=== PATIENT | female | born 1940 | race African-American/Black ===

== ENCOUNTER 2021-12-29 09:56 | Inpatient (IN) | payer OTHER, MEDICARE ==
[2021-12-29 10:36] LABS: #Basophils 0.1 thou/uL (0.0-0.2); #Eosinphils 0.1 thou/uL (0.0-0.7); #Lymphocytes 1.1 thou/uL (1.20-3.40); #Monocytes 0.4 thou/uL (0.11-0.59); #Neutrophils 3.4 thou/uL (1.40-6.50); %Basophils 2.3 % (0.0-1.0); %Eosinophils 1.5 % (0.0-10.0); %Lymphocytes 21.5 % (21.0-51.0); %Monocytes 8.1 % (0.0-10.0); %Neutrophils 66.7 % (42.0-75.0); Hemoglobin 12.6 g/dL (12.0-16.0); Mean Corpuscular HGB CONC 31.7 g/dL (32.0-36.0); Mean Corpuscular Hemoglobin 29.8 pg (27.0-31.0); Platelet Count 191 thou/uL (130-400); RBC Distribution Width 12.8 % (11.5-14.5); Red Blood Cell (RBC) Count 4.23 mill/uL (4.20-5.40); White Blood Cell (WBC) Count 5.1 thou/uL (4.8-10.8)
[2021-12-29 10:41] LABS: ALT (SGPT) 30 U/L (8-55); AST (SGOT) 45 U/L (5-34); Albumin 3.6 g/dL (3.4-4.8); Alkaline Phosphatase 114 U/L (40-110); Anion Gap 15 mmol/L (10-20); BUN (Urea Nitrogen) 21 mg/dL (9.8-20.1); Bilirubin, Total 0.4 mg/dL (0.2-1.2); Calc. Creatinine Clearance 0 mL/min (70-130); Calcium 8.8 mg/dL (7.8-10.44); Carbon Dioxide 26 mmol/L (23-31); Chloride 104 mmol/L (98-107); Estimated GFR 82; Globulin 2.7 g/dL (2.4-3.5); Glucose 82 mg/dL (83-110); Potassium 3.5 mmol/L (3.5-5.1); Protein, Total 6.3 g/dL (5.8-8.1); Sodium 141 mmol/L (136-145)
[2021-12-29 10:56] LABS: PTT 33.3 sec (22.9-36.1); Prothrombin Time 13.4 sec (12.0-14.7)
[2021-12-29] MEDS ORDERED: Morphine 4 MG/ML VIAL ONE (12:35)
[2021-12-29] MEDS ORDERED: Ondansetron ODT 4 MG TAB PO PRN (13:10)
[2021-12-29] MEDS ORDERED: Ondansetron PF 4 MG/2 ML Vial IVP PRN (13:10)
[2021-12-29] MEDS ORDERED: Dextrose 50% Abboject 50 ML SYRINGE SLOW IVP PRN (13:10)
[2021-12-29] MEDS ORDERED: Promethazine HCl 25 MG/ML VIAL IM PRN (13:10)
[2021-12-29] MEDS ORDERED: Dextrose 5% in Water 1,000 ML IV PRN (13:10)
[2021-12-29] MEDS ORDERED: hydrALAZINE 20 MG/ML VIAL SLOW IVP PRN (13:10)
[2021-12-29] MEDS ORDERED: Sodium Chloride 0.9% 1,000 ML IV SCH ×2 (13:15)
[2021-12-29] MEDS ORDERED: Iopamidol-370 76% 500 ML 1 ML ONE (13:35)
[2021-12-29] MEDS ORDERED: Ketorolac Tromethamine 30 MG/ML VIAL ONE (13:55)
[2021-12-29] MEDS: Acetaminophen 500 MG TAB PO SCH ×2 (15:25→21:01)
[2021-12-29 15:27] LABS: Magnesium 1.8 mg/dL (1.6-2.6); Phosphorus 3.1 mg/dL (2.3-4.7)
[2021-12-29 15:46] VITALS: BMI 18.6
[2021-12-29] MEDS: Famotidine 20 MG TAB PO SCH (21:01)
[2021-12-29] MEDS: hydrALAZINE 20 MG/ML VIAL SLOW IVP PRN (21:02)
[2021-12-29] MEDS ORDERED: Acetaminophen/Codeine 30-300mg Tablet PO PRN (21:03)
[2021-12-30] MEDS: Acetaminophen 325 MG TAB PO SCH ×4 (00:34→17:32)
[2021-12-30] MEDS: hydrALAZINE 20 MG/ML VIAL SLOW IVP PRN (02:08)
[2021-12-30 04:03] LABS: #Lymphocytes 0.9 thou/uL (1.20-3.40); #Monocytes 0.7 thou/uL (0.11-0.59); %Basophils 0.1 % (0.0-1.0); %Eosinophils 0.4 % (0.0-10.0); %Lymphocytes 10.8 % (21.0-51.0); %Monocytes 8.1 % (0.0-10.0); %Neutrophils 80.7 % (42.0-75.0); Hemoglobin 13.5 g/dL (12.0-16.0); Mean Corpuscular HGB CONC 31.7 g/dL (32.0-36.0); Mean Corpuscular Hemoglobin 30.3 pg (27.0-31.0); Mean Corpuscular Volume 95.5 fL (78.0-98.0); Mean Platelet Volume 11.3 fL (7.4-10.4); Platelet Count 166 thou/uL (130-400); RBC Distribution Width 13.1 % (11.5-14.5); Red Blood Cell (RBC) Count 4.45 mill/uL (4.20-5.40); White Blood Cell (WBC) Count 8.7 thou/uL (4.8-10.8)
[2021-12-30 08:07] LABS: Anion Gap 20 mmol/L (10-20); BUN (Urea Nitrogen) 17 mg/dL (9.8-20.1); Calc. Creatinine Clearance 49 mL/min (70-130); Carbon Dioxide 24 mmol/L (23-31); Chloride 100 mmol/L (98-107); Estimated GFR 77; Glucose 80 mg/dL (83-110); Phosphorus 3.8 mg/dL (2.3-4.7); Potassium 3.7 mmol/L (3.5-5.1); Sodium 140 mmol/L (136-145)
[2021-12-30] MEDS: Famotidine 20 MG TAB PO SCH (08:37)
[2021-12-30] MEDS ORDERED: Senokot S 8.6-50 MG TAB PO SCH (09:00)
[2021-12-30] MEDS ORDERED: Polyethylene Glycol 3350 17 GM Packet PO SCH (09:00)
[2021-12-30 11:44] VITALS: BP 145/65
[2021-12-30 15:56] VITALS: TEMP 98.2
== END 2021-12-30 18:32 | disposition home or self-care (01) | DRG 83 ==
LOC: ERS 09:56 → IMCU/EMU 13:14
PROVIDERS: ADMIT Nurse Practitioner Acute Care; ATTEND Surgery
PROC: 0RSNXZZ Reposition Right Wrist Joint, External Approach (ICD-10-PCS; principal; 2021-12-29)
DX: S06.6X9A Traumatic subarachnoid hemorrhage with loss of consciousness of unspecified duration, initial encounter (principal); S52.571A Other intraarticular fracture of lower end of right radius, initial encounter for closed fracture; Z20.822 Contact with and (suspected) exposure to COVID-19; S63.004A Unspecified dislocation of right wrist and hand, initial encounter; I10 Essential (primary) hypertension; G25.0 Essential tremor; V63.0XXA Driver of heavy transport vehicle injured in collision with car, pick-up truck or van in nontraffic accident, initial encounter; Z88.0 Allergy status to penicillin; Z88.2 Allergy status to sulfonamides
CPT/HCPCS: 25605; 36415; 70450; 71260; 72125; 74177; 80048; 80053; 83735; 84100; 85025; 85610; 85730; 96374; 96375; G0390; J0360; J1885; J2270; Q9967; U0003; U0005